=== PATIENT | female | born 1955 | race Two or more races ===

== ENCOUNTER 2022-10-08 15:52 | Emergency (ER) | payer OTHER ==
[~2022-10-08] VITALS: Ht 162.6 cm; Wt 74.8 kg
[2022-10-08] MEDS ORDERED: LOSARTAN POTASS25 MG PO (16:49)
[2022-10-08] MEDS ORDERED: SIMVASTATIN20 MG PO (16:49)
[2022-10-08] MEDS ORDERED: IBANDRONATE SO150 MG PO (16:49)
== END 2022-10-08 19:23 | disposition home or self-care (01) ==
LOC: ER 15:52
DX: K40.90 Unilateral inguinal hernia, without obstruction or gangrene, not specified as recurrent (principal); Z91.013 Allergy to seafood

== ENCOUNTER 2022-10-29 08:36 | Outpatient (CLI) | payer OTHER ==
[~2022-10-29 08:36] MED LIST: IBANDRONATE SO150 MG PO; LOSARTAN POTASS25 MG PO; SIMVASTATIN20 MG PO
== END 2022-10-29 08:44 | disposition home or self-care (01) ==
LOC: TOM 08:36
PROVIDERS: ATTEND Surgery
DX: K40.30 Unilateral inguinal hernia, with obstruction, without gangrene, not specified as recurrent (principal)
CPT/HCPCS: 74177; Q9965

== ENCOUNTER 2022-11-25 05:50 | Day surgery (SDC) | payer OTHER ==
[2022-11-19 10:35] LABS: HEMATOCRIT 40.1 % (36.0-45.00); HEMOGLOBIN 12.7 g/dL (12.0-15.00); MEAN CELL VOLUME 88.4 fL (80.00-100.00); MEAN CORPUSCULAR HEMOGLOBIN 28.1 pg (27.00-32.0); MEAN CORPUSCULAR HGB CONC 31.8 g/dl (32.0-36.0); PLATELET COUNT 216 K/uL (150-450); RED BLOOD COUNT 4.53 M/uL (4.00-6.00); RED CELL DISTRIBUTION WIDTH 14.6 % (11.5-14.5)
[~2022-11-25] VITALS: Ht 162.6 cm; Wt 74.8 kg
[~2022-11-25 05:50] MED LIST changes: +B12 ACTIVE1000 MCG PO; +CALTRATE 600 +1 EAC1 PO
== END 2022-11-25 14:35 | disposition home or self-care (01) ==
LOC: CIR.AMB 05:50
PROVIDERS: ATTEND Surgery
DX: K40.31 Unilateral inguinal hernia, with obstruction, without gangrene, recurrent (principal); Z20.822 Contact with and (suspected) exposure to COVID-19; Z91.013 Allergy to seafood; E78.5 Hyperlipidemia, unspecified; I10 Essential (primary) hypertension